=== PATIENT | male | born 1975 | race Caucasian/White ===

== ENCOUNTER 2020-12-13 13:51 | Emergency (ER) | payer OTHER ==
[~2020-12-13] VITALS: Ht 177.8 cm; Wt 90.7 kg
[2020-12-13] MEDS ORDERED: ALPHA LIPOIC A300 MG PO (15:45)
[2020-12-13] MEDS ORDERED: NAPROXEN500 MG PO (15:46)
[2020-12-13] MEDS ORDERED: BIOTENE ORALBAL42 G1 MM (15:46)
[2020-12-13] MEDS ORDERED: LIDOCAINE5 GM TP (15:46)
[2020-12-13] MEDS ORDERED: OMEPRAZOLE20 MG PO (15:46)
[2020-12-13] MEDS ORDERED: SODIUM FLUORIDE56 GM DT (15:46)
== END 2020-12-13 16:31 ==
LOC: ED 13:51
DX: M54.5 Low back pain (principal); R33.9 Retention of urine, unspecified; Z87.39 Personal history of other diseases of the musculoskeletal system and connective tissue
CPT/HCPCS: 51798; 99284-25

== ENCOUNTER 2022-01-24 21:05 | Emergency (ER) | payer OTHER ==
[~2022-01-24] VITALS: Ht 177.8 cm; Wt 90.7 kg
[~2022-01-24 21:05] MED LIST: ALPHA LIPOIC A300 MG PO; BIOTENE ORALBAL42 G1 MM; LIDOCAINE5 GM TP; NAPROXEN500 MG PO; OMEPRAZOLE20 MG PO; SODIUM FLUORIDE56 GM DT
== END 2022-01-25 01:54 | disposition home or self-care (01) ==
LOC: ED 21:05
DX: S22.42XA Multiple fractures of ribs, left side, initial encounter for closed fracture (principal); S06.0X9A Concussion with loss of consciousness of unspecified duration, initial encounter; Z79.899 Other long term (current) drug therapy; S00.81XA Abrasion of other part of head, initial encounter; S30.1XXA Contusion of abdominal wall, initial encounter; Y04.0XXA Assault by unarmed brawl or fight, initial encounter
CPT/HCPCS: 36415; 70450; 70486; 70491; 71260; 72125; 74177; 80053; 82553; 83690; 85025; 99284-25; J1170; J2405; Q9967